=== PATIENT | male | born 2000 | race Caucasian/White ===

== ENCOUNTER 2018-06-13 22:57 | Inpatient (IN) | payer OTHER ==
[2018-06-14 00:51] LABS: Hemoglobin 16.3 g/dL (14.0-18.0); Mean Corpuscular HGB CONC 34.8 g/dL (32.0-36.0); Mean Corpuscular Hemoglobin 30.4 pg (25.0-35.0); Mean Corpuscular Volume 87.6 fL (78.0-98.0); Mean Platelet Volume 6.4 fL (7.4-10.4); Platelet Count 358 thou/uL (130-400); RBC Distribution Width 12.1 % (11.5-14.5); Red Blood Cell (RBC) Count 5.34 mill/uL (4.00-5.20); White Blood Cell (WBC) Count 22.6 thou/uL (4.8-10.8)
[2018-06-14 00:55] LABS: ALT (SGPT) 23 U/L (8-55); AST (SGOT) 18 U/L (10-45); Alkaline Phosphatase 84 U/L (Less than 750); Anion Gap 18 mmol/L (10-20); BUN (Urea Nitrogen) 18 mg/dL (8.4-21.0); Calc. Creatinine Clearance 0 mL/min (70-130); Calcium 10.2 mg/dL (7.8-10.44); Carbon Dioxide 21 mmol/L (22-29); Chloride 104 mmol/L (98-107); Estimated GFR-MDRD Greater than 90; Globulin 3.2 g/dL (2.4-3.5); Glucose 87 mg/dL (70-105); Potassium 3.8 mmol/L (3.5-5.1); Protein, Total 8.2 g/dL (6.0-8.3); Sodium 139 mmol/L (136-145)
[2018-06-14 01:03] LABS: Band 1 % (5-11); Lymphocytes 19 % (28-48); MDiff Complete? YES; Monocytes 12 % (0-4); Neutrophil 68 % (31-61); Platelet Morphology Comment Appears Adequate
[2018-06-14] MEDS ORDERED: Ondansetron PF 4 MG/2 ML Vial ONE (01:12)
[2018-06-14] MEDS ORDERED: Ketorolac Tromethamine 30 MG/ML VIAL ONE ×2 (01:12→16:06)
[2018-06-14] MEDS ORDERED: Sodium Chloride 0.9% 100 ML ONE (02:50)
[2018-06-14] MEDS ORDERED: Piperacillin/Tazobactam 3.375 GM VIAL ONE (02:50)
[2018-06-14] MEDS ORDERED: Fentanyl 250 MCG/5 ML VIAL ONE (06:52)
[2018-06-14] MEDS ORDERED: Bupivacaine/Epinephrine 0.25% 30 ML VIAL ONE (07:18)
--- NOTE | 2018-06-14 07:37 | CT ---
PRELIMINARY REPORT/[facility]/EMERGENCY AFTER HOURS PROCEDURE: Addendum created by Lucio Sheth MD on 06/14/2018 2:45 AM Central Time ([place] & [place]) Report of this case was discussed with PERRY Bazan at 2:45 AM CDT, 06/14/2018. The findings were acknowledged and understood. Initial Report created on 06/14/2018 2:42 AM Central Time ( [place] & [place]) EXAM: CT Abdomen and Pelvis With Contrast EXAM DATE/TIME: 06/14/2018 2:22 AM CLINICAL HISTORY: 17 years old, male; Pain; Abdominal pain; Localized; Right lower quadrant (rlq) TECHNIQUE: Imaging protocol: Axial computed tomography images of the abdomen and pelvis with intravenous contrast. Coronal reformatted images were created and reviewed. COMPARISON: No relevant prior studies available. FINDINGS: Lower thorax: The lung bases are clear. ABDOMEN: Liver: Unremarkable. Gallbladder and bile ducts: No definite gallbladder abnormality by CT. No biliary tree dilation. Pancreas: Unremarkable. Spleen: Unremarkable. Adrenals: Unremarkable. Kidneys and ureters: Unremarkable. Stomach and bowel: There are no CT findings to suggest diverticulitis. Appendix: There are findings compatible with acute appendicitis. The appendix is fluid-filled and dilated up to 17-18 mm. At least 2 appendicoliths in the proximal appendix. There are mild periappendiceal inflammatory changes. Small amount of periappendiceal fluid. No obvious abscess or extraluminal gas at this time. PELVIS: Bladder: Unremarkable as visualized. Reproductive: Unremarkable as visualized. ABDOMEN and PELVIS: Intraperitoneal space: Small amount of peritoneal fluid in the lower pelvis, anterior to the rectum. No free air, generalized ascites, or significant bowel distention. Bones/joints: No significant acute finding. Soft tissues: No significant acute finding. Vasculature: No evidence for abdominal aortic aneurysm. Lymph nodes: No retroperitoneal adenopathy. IMPRESSION: 1. Findings compatible with acute appendicitis, see above details. 2. Small amount of peritoneal fluid in the lower pelvis. 3. No free air or significant bowel distention. 4. Other findings discussed above. Thank you for allowing us to participate in the care of your patient. Dictated and Authenticated by: Lucio Sheth MD 06/14/2018 2:42 AM Central Time ([place] & [place]) FINAL REPORT CT Appendix Protocol History: [Abdominal pain] Comparison: None. Findings: The appendix is dilated containing appendicoliths in the base with periappendiceal strandin g. No free air. Impression: Findings and impression are concordant with the preliminary report. Acute appendicitis. Transcribed Date/Time: 06/14/2018 8:09 AM
[2018-06-14] MEDS ORDERED: SUGAMMADEX SODIUM 200 MG/2 ML VIAL ONE (08:17)
--- NOTE | 2018-06-14 08:19 | HP ---
HISTORY OF PRESENT ILLNESS: Camilo Rossi is a 17-year-old male patient from [facility] [employer] [facility] [facility] has a 48-hour history of right lower quadrant pain, followed by anorexia, nausea, or vomiting. Pain is worse with movement. He presented to the emergency room with appendicitis. The patient had a CAT scan confirming appendicitis. White count 22, hemoglobin 16. Basic metabolic profile normal. ALLERGIES: NONE. SOCIAL HISTORY: Tobacco, occasionally. Alcohol, occasionally. MEDICATIONS: None. PAST SURGICAL HISTORY: Noncontributory. PAST MEDICAL HISTORY: Noncontributory. PHYSICAL EXAMINATION: VITAL SIGNS: Weight 50 kg. Blood pressure 121/74, pulse 62, respiratory rate 16, and temperature 98.2 degrees. HEAD, EYES, EARS, NOSE, AND THROAT: Unremarkable. NECK, AXILLA, AND GROINS: No lymphadenopathy in neck, axilla, or groins. SKIN: Normal. LUNGS: Clear to auscultation. CARDIAC: Regular rate and rhythm without murmur or gallop. ABDOMEN: Soft. Tenderness in his right lower quadrant. No guarding or rebound. EXTREMITIES: Unremarkable. Ankles without edema. Palpable pedal pulses. ASSESSMENT AND PLAN: Acute appendicitis. I would recommend laparoscopic video appendectomy. Risks of infection, bleeding, visceral injury, possibility of open procedure, etc., were explained. Questions answered. Job ID: [id number]
--- NOTE | 2018-06-14 11:10 | OP ---
DATE OF PROCEDURE: 06/14/2018 PREOPERATIVE DIAGNOSIS: Acute appendicitis. POSTOPERATIVE DIAGNOSIS: Acute appendicitis. PROCEDURE PERFORMED: Laparoscopic video appendectomy. ANESTHESIA: General, local of 0.5% Marcaine with epinephrine 30 mL total volume used. Note, Beaulieu catheter placed at the beginning of the procedure, removed at the end. DESCRIPTION OF PROCEDURE: Abdomen was prepared with ChloraPrep and draped in routine fashion. Local anesthetic was infiltrated in the skin and subcutaneous tissue about each port site. Infraumbilical incision was made. Pneumoperitoneum to 15 mmHg was obtained with a Veress needle, replacing with a 5 port, video laparoscope inserted. Right lateral subcostal incision was made and a 5 port placed. Suprapubic incision was made and a 12 port placed. Appendix was acutely inflamed. Mesoappendix was taken down with the LigaSure. The stump of the appendix was divided with Endo-YAW blue load stapler. Stapled cecal stump. Hemostasis was gained with clips. Good hemostasis was noted. Irrigant and pneumoperitoneum were evacuated. Appendix removed in an EndoBag. Suprapubic fascia was approximated with 0 Vicryl. Skin incisions were approximated with interrupted sutures of 4-0 Monocryl and Alzada glue applied. Job ID: [id number]
[2018-06-14] MEDS ORDERED: Rocuronium Bromide 10 MG/ML (10ML VIAL) ONE (16:06)
[2018-06-14] MEDS ORDERED: Lidocaine 1% PF 5 ML VIAL ONE (16:06)
[2018-06-14] MEDS ORDERED: PROPOFOL 200 MG/20 ML VIAL ONE (16:06)
[2018-06-14] MEDS ORDERED: Glycopyrrolate 0.2 MG/ML 5 ML SYRINGE ONE (16:06)
== END 2018-06-14 11:17 | disposition home or self-care (01) | DRG 343 ==
LOC: ERS 22:57 → ERHOLD 06-14 03:10
PROVIDERS: ADMIT Surgery; ATTEND Surgery
PROC: 0DTJ4ZZ Resection of Appendix, Percutaneous Endoscopic Approach (ICD-10-PCS; principal; 2018-06-14)
DX: K35.80 Unspecified acute appendicitis (principal)
CPT/HCPCS: 74177; 80053; 83690; 85025; 88304; J1885; J2001; J2405; J2543; J2704; J3010; J7050